=== PATIENT | female | born 1940 | race Caucasian/White ===

== ENCOUNTER 2016-09-19 14:42 | Inpatient (IN) ==
[2016-09-19 15:23] LABS: MANUAL DIFF NEEDED? NO
[2016-09-19 15:30] LABS: BASO% 0.1 % (0.0-0.8); EOS# 0.07 X1000 (0.0-0.7); EOS% 0.5 % (0.0-10.0); HEMATOCRIT 34.3 % (37.0-47.0); HEMOGLOBIN 11.6 g/dL (12.0-16.0); IMM GRAN# 0.04 X1000 (0.0-0.04); IMM GRAN% 0.3 % (0.0-0.5); LYMPH# 1.86 X1000 (1.2-3.4); LYMPH% 13.4 % (20.5-51.1); MCHC 33.8 g/dL (33-37); MCV 85.8 FL (81-99); MONO# 1.08 X1000 (0.11-0.59); MONO% 7.8 % (1.7-9.3); MPV 10.3 FL (7.4-10.4); NEUT% 77.9 % (42.2-75.2); PLT 341 X1000 (130-400)
[2016-09-19 15:39] LABS: ACETAMINOPHEN < 1.2 ug/mL (10-30); AGAP 14; ALBUMIN 4.1 g/dL (3.5-5.0); ALKALINE PHOSPHATASE 89 U/L (32-104); BUN 33 mg/dL (8-22); CALCIUM 9.7 mg/dL (8.8-10.2); CHLORIDE 94 mmol/L (98-107); COSMO 276; GOT 17 U/L (10-30); GPT 12 U/L (10-36); POTASSIUM 3.9 mmol/L (3.5-5.1); SODIUM 133 mmol/L (136-145); TCO2 25 mmol/L (25-35); TOTAL BILIRUBIN 0.36 mg/dL (0.20-1.00)
[2016-09-19 15:48] LABS: URINE CULTURE NEEDED? NO; URINE MICRO REVIEW NEEDED? NO; URINE SOURCE CLEAN CATCH
[2016-09-19 15:54] LABS: BILIRUBIN URINE NEGATIVE (NEGATIVE); BLOOD URINE NEGATIVE (NEGATIVE); COLOR YELLOW; GLUCOSE URINE NEGATIVE (NEGATIVE); LEUKOCYTES URINE NEGATIVE (NEGATIVE); NITRITE URINE NEGATIVE (NEGATIVE); PH URINE 5.5; PROTEIN URINE TRACE mg/dL (NEGATIVE); SP GRAVITY URINE 1.019; TURBIDITY URINE CLEAR (CLEAR); UROBILINOGEN URINE NORMAL (NORMAL)
[2016-09-19 15:55] LABS: UR EPITHELIAL CELLS <10 /HPF (<10); URINE BACTERIA NEGATIVE /HPF; URINE RBC <10 /HPF (<10); URINE WBC <10 /HPF (<10)
--- NOTE | 2016-09-19 15:58 | PROVIDER DOCUMENTATION ---
This chart was entered by Donna Arce Scribe, acting as scribe for Yaya Kohli MD. HPI-General Adult - General Chief Complaint: Altered Mental Status Stated Complaint: AMS Time Seen by Provider: 09/19/16 15:08 Source: patient Allergies/Adverse Reactions: Patient Allergies Allergy/AdvReac Type Severity Reaction Status Date / Time amoxicillin [Amoxicillin] AdvReac Severe DIARRHEA Verified 01/19/16 12:22 Home Medications: Home Medication List Medication Instructions Recorded Confirmed Last Taken Type Dipyridamole 50 mg PO TID 01/05/15 09/19/16 01/18/16 19:00 History Ropinirole [Requip] 1 mg PO BID 01/05/15 09/19/16 05/30/16 06:30 History Dicyclomine [Bentyl] 10 mg PO TID AC 07/05/15 09/19/16 01/18/16 19:00 History Pantoprazole Sodium [Protonix] 40 mg PO DAILY 07/05/15 09/19/16 05/30/16 06:00 History Azithromycin [Azithromycin] 500 mg PO DAILY 09/19/16 09/19/16 Unknown History Baclofen [Baclofen] 10 mg PO BID 09/19/16 09/19/16 Unknown History Lorazepam [Lorazepam] 0.5 mg PO TID 09/19/16 09/19/16 Unknown History Methylprednisolone [Medrol Dosepak] 1 each PO DIRECTED 09/19/16 09/19/16 Unknown History Omeprazole [Omeprazole] 20 mg PO DAILY 09/19/16 09/19/16 Unknown History Pravastatin Sodium [Pravastatin 40 mg PO DAILY 09/19/16 09/19/16 Unknown History Sodium] Triamterene/Hydrochlorothiazid 1 each PO DAILY 09/19/16 09/19/16 Unknown History [Triamterene-Hctz 75-50 mg Tab] - History of Present Illness -Gen Adult Nature of Presenting Problems: pt is a 75 yof that presents to er with cc of falling. Pt reports that she called EMS bc she has fallen several times today. Reports hx of vertigo for years. Denies any drug,alcohol dependance, n,v,extremity injuries. EMS reports pt has AMS secondary to dementia. pt reports that she has hit her head multiple times today and now having a headache globally. Pt has an implanted morphine pump and [facility] to [facility]. Review of Systems - Adult - REVIEW OF SYSTEMS - ADULT Constitutional: denies: chills, fever, fatique Eyes: reports: no symptoms reported Ears, Nose, Mouth & Throat: reports: no symptoms reported Cardiovascular: reports: no symptoms reported Respiratory: reports: no symptoms reported Gastrointestinal: denies: abdominal pain, diarrhea, nausea, vomiting Genitourinary: reports: no symptoms reported Musculoskeletal: reports: see HPI. denies: joint pain, joint swelling, neck pain Integumentary: denies: hives, mole changes, skin sores/ulcer, skin thickening Neurological: reports: headache/migraines. denies: dizziness/vertigo, loss of balance, numbness, paresthesia, seizure, slurred speech Psychiatric: reports: no symptoms reported Endocrine: reports: no symptoms reported Hematologic/Lymphatic: reports: no symptoms reported Allergic/Immunologic: reports: no symptoms reported All Other Systems: Reviewed and Negative Past History - Adult - PAST MEDICAL HISTORY-ADULT Review of Records: reports: Nursing Assessment Review, Medications Reviewed Major Childhood Illnesses: reports: denies history Cardiovascular: reports: CAD, CHF, HTN, hyperlipidemia Respiratory: reports: asthma, COPD Gastrointestinal: reports: GERD Obstetrical/Gynecological: reports: denies history Genitourinary: reports: denies history Musculoskeletal: reports: chronic pain (chronic back pain with a pain pump) Neurological: reports: denies history Psychiatric: reports: depression, suicide attempt Endocrine/Immune: reports: cancer (skin) Other Conditions: reports: denies history - PRIOR SURGERIES/PROCEDURES Surgical/Procedure History: reports: appendectomy, CABG, cholecystectomy, hysterectomy, back/neck - PRIOR HOSPITALIZATIONS Prior Hospitalizations: reports: none - IMMUNIZATION STATUS Childhood Immunizations: See Nurse Assessment Flu Vaccine: See Nurse Assessment - FAMILY HISTORY Family History: reviewed, not pertinent - SOCIAL HISTORY Smoking: cigarettes, less than 1 pack/day Provider spent 3-5 mins advising pt. on dangers of tobacco.: Discussed manners to quit use, and f/u contacts for add'l counseling. Substance Use: none/never Physical Exam-General - PHYSICAL EXAM-ADULT Initial Vital Signs Reviewed: Yes - CONSTITUTIONAL General Appearance: appears well, alert, no apparent distress - EYES Eyes: PERRL/EOMI, pink conjunctivae - NECK Neck: non-tender, full range of motion, supple, normal inspection - RESPIRATORY Respiratory: chest non-tender, lungs clear, normal breath sounds, no pleuratic chest pain, no respiratory distress, no accessory muscle use - CARDIOVASCULAR Cardiovascular: regular rate, rhythm - GASTROINTESTINAL (ABDOMEN) Abdominal Exam: normal bowel sounds, non tender, soft, no organomegaly, no pulsatile mass - MUSCULOSKELETAL Extremity: normal range of motion, non-tender - SKIN Integumentary: normal color, normal turgor, warm/dry - NEUROLOGIC Neurologic: grossly normal - PSYCHIATRIC Psych/Mental Status: normal mood/affect, normal thought content, normal thought process, other (oriented x 2) Progress - PLAN OF CARE/RESULTS Progress/Plan/Lab Results: Vital Signs - 8 hr 09/19/16 14:45 Temperature 98.5 F Pulse Rate 103 H Respiratory Rate 20 Blood Pressure 132/79 O2 Sat by Pulse Oximetry 99 Orders Category Date Time Status CBC WITH ELECTRONIC DIFF [HEME] Stat Lab 09/19/16 15:08 Uncollected CMP [COMPREHENSIVE METABOLIC PANEL] [CHEM] Stat Lab 09/19/16 15:08 Uncollected UA NIMS W/REFLEX CULT [URINALYSIS] Stat Lab 09/19/16 15:09 Uncollected UDS [URINE DRUG SCREEN] Stat Lab 09/19/16 15:13 Uncollected Result Diagrams: 09/19/16 14:53 09/19/16 14:53 - EKG 1 Time of EKG reading by physician:: 15:05 EKG Read and Signed by:: Yaya Kohli EKG Interpretation (*Must complete 3 of following elements*): Abnormal (poss lae ) Rate: 101 Rhythm: sinus tachy ST Wave: non-specific ST changes (nonspecific ST and T wave abnormality) - CT/MRI 1 CT Study: Head Impression: Normal CT Results: nad - CONSULTS/PCP/HOSPITALIST Notification #1 *Consult/PCP/Hospitalist*: [facility] Time Discussed: 16:44 Consult Disposition: other (they do not want her on baclofen or lorazepam while on the morphine pump. Her dose is so low on the pump, that the urine being negative is expected.) Departure - Departure Date of Disposition Decision: 09/19/16 Time of Disposition Decision: 16:45 DIAGNOSIS: Polypharmacy, Ataxia, Renal insufficiency Medication adverse effect Qualifiers: Encounter type: initial encounter Qualified Code(s): T88.7XXA - Unspecified adverse effect of drug or medicament, initial encounter Disposition: ADMITTED INPATIENT 09 Certified Medical Emergency: Emergent Condition: Stable Additional Freetext Instructions: do not take any lorazepam or any baclofen since you are on a morphine pain pump. It is making you fall ED Follow Up Instructions: You have been treated by a care provider in the Emergency Department. These instructions are being provided to you so you can have an understanding of how to care for yourself upon discharge. Upon discharge from the Emergency Department, you are responsible for making arrangements for follow-up care by a physician of your choice. Take all prescribed medications as directed. Return to the Emergency Department immediately for any new or worsening symptoms. You may call the Physician Referral phone number at [phone] to obtain a list of Physicians who are taking new patients. Referrals and Follow-Ups: Alejandro Leslie MD [Primary Care Provider] - - Critical Care Note This patient required my direct & personal management of CC.: No Attestation - Physician/ ROMARIO Attestation The physician spent face to face time with patient:: Yes Advanced Practice Provider documentation review:: Supervising physician onsite and consulted in the evaluation and care of this patient. The physician did have a face to face encounter with the patient. This chart was documented by the indicated scribe, (Donna Arce Scribe) and accurately reflects the services I performed and decisions made by me, Yaya Kohli MD, as attested by the provider's signature.
[2016-09-19 16:02] LABS: UR AMPHETAMINES QUAL NONE DETECTED (NONE DETECT); UR BARBITUATES QUAL NONE DETECTED (NONE DETECT); UR BENZODIAZEPIN QUAL NONE DETECTED (NONE DETECT); UR CANNABINOIDS QUAL NONE DETECTED (NONE DETECT); UR COCAINE QUAL NONE DETECTED (NONE DETECT); UR METHADONE QUAL NONE DETECTED (NONE DETECT); UR OPIATES QUAL NONE DETECTED (NONE DETECT); UR OXYCODONE QUAL NONE DETECTED (NONE DETECT); UR PCP QUAL NONE DETECTED (NONE DETECT)
--- NOTE | 2016-09-19 16:04 | Diag Imaging Result Doc PS360 ---
EXAM: HEAD W/O CONTRAST TECHNIQUE: INDICATION: fall COMPARISON: 07/09/2015 FINDINGS: There is no definite acute infarct given the limited sensitivity of CT versus MRI. There is no discrete intracranial mass, mass effect, or intracranial hemorrhage. The surrounding soft tissues and bony structures are essentially unremarkable. IMPRESSION: No evidence of acute intracranial pathology. Electronically signed by Chris Reardon 09/19/2016 4:01 PM
[2016-09-19] MEDS ORDERED: ZOFRAN IV PRN (19:13)
--- NOTE | 2016-09-19 19:47 | HISTORY AND PHYSICAL ---
PRIMARY CARE PHYSICIAN: Alejandro Leslie MD CHIEF COMPLAINT: Fall and amnesia. HISTORY OF PRESENT ILLNESS: Ms. Jaramillo is a 75-year-old female with a history of chronic pain with pain pump, hypertension, Meniere's disease, coronary disease, nicotine dependence, and questionable dementia who comes to the ER today after she reports that she has amnesia and is unable to recall who she is, however, at the time of interview, the patient is able to tell us her name, but reports that she has fallen a few times and has had difficulty with her memory. She lives alone and is on multiple medications. Otherwise, history is very difficult to obtain as the patient is a poor historian, and there is no family at the bedside. When she got to the ER today, she had a head CT done which showed chronic changes, but nothing acute. Her labs showed a mildly elevated white count, anemia, hyponatremia, mild renal insufficiency, but nothing overly acute. Her vitals are stable and her physical exam is benign. She is slightly confused, but is essentially able to answer orientation questions, and her neurologic exam is nonfocal. As such, she is going to be admitted for encephalopathy, hyponatremia and renal insufficiency. PAST MEDICAL HISTORY: 1. Coronary artery disease. 2. Chronic pain with a pain pump in the right lower quadrant. 3. Nicotine dependence. 4. Questionable dementia. 5. Hypertension. 6. GERD. 7. Meniere's disease. SURGICAL HISTORY: Appendectomy, CABG, cholecystectomy, hysterectomy, pain pump insertion. SOCIAL HISTORY: Patient smokes about a half a pack a day. She lives alone. She denies alcohol or drug use. ALLERGIES: Amoxicillin. FAMILY HISTORY: Noncontributory. HOME MEDICATIONS: Azithromycin 500 mg daily. Baclofen 10 mg b.i.d. Bentyl 10 mg p.o. t.i.d. Dipyridamole 50 mg p.o. t.i.d. Lorazepam 0.5 mg p.o. t.i.d. Medrol Dosepak as directed. Omeprazole 20 mg daily. Protonix 40 mg daily. Pravastatin 40 mg daily. Requip 1 mg b.i.d. Triamterene/hydrochlorothiazide 1 daily. REVIEW OF SYSTEMS: Difficult to obtain, but a 14 point review of system was obtained and found to be negative with the exception of the HPI. PHYSICAL EXAMINATION: VITAL SIGNS: Blood pressure is 123/85, heart rate is 70, respiratory rate 18, O2 saturation 99% on room air. Temperature is 98.9 degrees. GENERAL: This is an elderly and frail-appearing 75-year-old, female, lying in hospital bed. No acute distress. NEUROLOGIC: Overall the patient is on oriented to her name, place and date. She follows commands without focal deficits, during the course of the interview she is quite forgetful at times. HEENT: Head atraumatic and normocephalic. Her pupils are equal, round, and reactive to light. Oral mucosa is a bit dry. Trachea is midline. There is no JVD. CHEST: Clear to auscultation bilaterally. CARDIOVASCULAR: Regular rate and rhythm. S1-S2 is noted. No murmurs. GI: Soft and nondistended. There is an artificial device surgically implanted in the right lower quadrant. EXTREMITIES: Without edema, clubbing or cyanosis. Pulses palpable bilaterally. DIAGNOSTIC DATA: WBC 13.9, hemoglobin 11.6, hematocrit 34.3, platelet count 341 ,000. Sodium 133, potassium 3.9, chloride 94, CO2 25, anion gap 14, BUN 33, creatinine 1.4, glucose is 147, calcium 9.7. LFTs within normal limits. Albumin 4.1. UA does not show anything acute. Toxicology is completely negative. ASSESSMENT AND PLAN: 1. Generalized encephalopathy: Likely medication induced on top of chronic dementia. The patient will be admitted to the floor. We will stop all of her mind- altering medications and track her neurologic status, head CT does not show anything acute at this time. There does not appear to be any acute metabolic issues causing her confusion. We may need to get either Psychiatric or Neurology, possibly both on board. 2. Leukocytosis: At this time, there does not appear to be any nidus of infection. She is not febrile or tachycardic. Urinalysis is negative. We are checking a chest x- ray. 3. Hyponatremia: Likely hypovolemic, with use of diuretic. We will stop the diuretic and give her some fluids. 4. Renal insufficiency: Likely volume related and with concomitant use of a diuretic. We will stop the diuretic and give her fluids and avoid any nephrotoxic medications. 5. Anemia: We will check thyroid function and anemia studies in the morning. 6. Query safe home environment: Patient lives alone and reports frequent falls and with her level of encephalopathy, she is unlikely to have a safe home environment. We are going to try and call her family in the morning and will consult Physical Therapy and Social Work. 7. Deep vein thrombosis prophylaxis with Lovenox, renally dosed. Further recommendations to follow. Dictated by CHRISTA Salazar for Kiana Andrade MD cc: CHRISTA Salazar MD [facility]ENT[facility]rystal
[2016-09-19] MEDS: NICODERM PATCH TD SCH (22:25)
[2016-09-19] MEDS: REQUIP PO SCH (22:26)
[2016-09-19] MEDS: NS 1,000 ML IV SCH (22:28)
--- NOTE | 2016-09-20 05:37 | EKG Report ---
Test Performed on : 09/19/2016 3:05:02 PM Test Reason : AMS Blood Pressure : / mmHG Vent. Rate : 101 BPM Atrial Rate : 101 BPM P-R Int : 172 ms QRS Dur : 066 ms QT Int : 352 ms P-R-T Axes : 071 038 086 degrees QTc Int : 456 ms Sinus tachycardia. Possible Left atrial enlargement Nonspecific ST and T wave abnormality Abnormal ECG When compared with ECG of 15-SEP-2016 19:08, No significant change was found Unconfirmed Result
[2016-09-20] MEDS: PROTONIX PO SCH ×2 (05:56→06:57)
[2016-09-20] MEDS: BENTYL PO SCH ×4 (05:56→17:30)
[2016-09-20 06:14] LABS: HEMATOCRIT 32.5 % (37.0-47.0); HEMOGLOBIN 10.7 g/dL (12.0-16.0); MCH 29.5 PG (27-31); MCHC 32.9 g/dL (33-37); MCV 89.5 FL (81-99); MPV 9.3 FL (7.4-10.4); RBC 3.63 XMIL (4.2-5.4)
[2016-09-20 06:40] LABS: CALCIUM 9.2 mg/dL (8.8-10.2); POTASSIUM 3.2 mmol/L (3.5-5.1)
--- NOTE | 2016-09-20 07:20 | Diag Imaging Result Doc PS360 ---
CHEST-2 VIEWS - 09/20/2016 INDICATION: leukocytosis TECHNIQUE: COMPARISON: 09/15/2016 FINDINGS: Stable mildly hyperexpanded lungs compatible with COPD. Stable calcified granulomas in the left lower lobe. No focal infiltrates, pneumothorax, or pleural effusion. Heart size and pulmonary vascularity is normal. IMPRESSION: COPD. No change from prior. Electronically signed by Chacorta Fu 09/20/2016 7:18 AM
[2016-09-20] MEDS: PRAVACHOL PO SCH (09:31)
[2016-09-20] MEDS: REQUIP PO SCH ×2 (09:31→22:00)
[2016-09-20] MEDS: LOVENOX SUBQ SCH (09:31)
[2016-09-20] MEDS: NICODERM PATCH TD SCH (09:31)
[2016-09-20] MEDS ORDERED: KLOR-CON PO ONE (09:51)
[2016-09-20] MEDS: VITAMIN B-12 SL SCH (11:54)
[2016-09-20] MEDS: FOLIC ACID PO SCH (11:54)
[2016-09-20] MEDS: NS 1,000 ML IV SCH ×2 (11:56→17:55)
--- NOTE | 2016-09-20 17:06 | CONSULTATION ---
DATE OF CONSULTATION: 09/20/2016 REASON FOR CONSULTATION: The patient is seen in consultation at the request of Dr. Andrade for evaluation of altered mental status. HISTORY OF PRESENT ILLNESS: A 75-year-old, right-handed, female with chronic pain with pain pump, Meniere disease, nicotine dependence, hypertension, and coronary artery disease, possible dementia or mild cognitive impairment, who was admitted yesterday with altered mental status. Per records, she reported she had a period of amnesia but that had improved in the emergency room. She tells me today that she took some new medications that were given to her including a Z-Ranjith and 2 others that she cannot recall. She took her other medications and went to sleep on the couch for quite some time. She woke up and felt dizzy. When she was trying to get up her dizziness got worse. She was unable to get to a standing position. She tried to push off on the table with her arm but kept slipping. Therefore, she tried the other arm and the same thing happened. She did not have any major fall, however. She does not believe she had loss of consciousness. She is a very poor historian for the most part. A head CT showed no acute findings. She had a mildly elevated white count, anemia, hyponatremia, some mild renal insufficiency. There is concern about over medication. She denied headache, visual changes, focal numbness or weakness. No history of seizures. Since admission her medications have been reduced and she states that she is feeling much better. PAST MEDICAL HISTORY: Coronary artery disease, chronic pain with pain pump in the right lower quadrant, nicotine dependence, possible dementia versus mild cognitive impairment versus medication effect, hypertension, GERD, Meniere disease, appendectomy, CABG, cholecystectomy, hysterectomy, pain pump insertion. SOCIAL HISTORY: She lives alone. Her daughter recently moved to [place]. She is a current smoker. No alcohol or drug use. ALLERGIES: Amoxicillin. MEDICATIONS: At home include azithromycin, I believe that was just started today the day her symptoms started, baclofen, Bentyl, dipyridamole, lorazepam, Medrol Dosepak, omeprazole, Protonix, pravastatin, Requip, triamterene/hydrochlorothiazide. I am not sure which other 2 medications were given to her newly with the azithromycin. FAMILY HISTORY: Noncontributory. REVIEW OF SYSTEMS: The balance of 12 was conducted and was somewhat limited but appeared to be negative except that mentioned in the HPI. PHYSICAL EXAMINATION: Vital signs: Afebrile, blood pressure 149/42, pulse 101 , respirations 19, 100% on room air. General: This is an elderly female, asleep in bed, no acute distress. HEENT: All normal. Neck: Supple. No meningismus. Trachea midline. Cardiovascular: Intact pulses. No edema. Pulmonary: No increased work of breathing. Normal chest rise and expansion. No audible rales or wheezes. Abdomen: Soft, nontender. She does have a pain pump in the right side of her abdomen. Extremities: Warm and well perfused. No edema. No clubbing or cyanosis. Skin: Warm, dry, and intact. She has some bruising scattered. Neurologic: Mental status: She is asleep initially. Arouses to voice plus light tactile stimulation on the knee. Regards. Spontaneously conversational. She is oriented. Speech is fluent. She does seem to be somewhat confused and is a poor historian overall, though she is able to discuss some recent events and remote events. Cranial nerves: KEERTHI. Conjugate gaze. Ocular movements are full. Visual hurley full to direct confrontational testing. Face symmetric with equal activation. Facial sensation is intact. Tongue protrudes midline. Palate elevates symmetrically. Shoulder shrug is full. Motor exam: No drift. Strength is symmetric in the upper and lower extremities. No overt weakness. Reflexes are reduced throughout, symmetric. Toes are mute. No clonus. No evidence of incoordination on testing. Sensory exam: No gross abnormalities on testing. DIAGNOSTICS DATA: Head CT was personally reviewed. There are no acute findings. There may be some mild diffuse atrophy, though this may not be out of proportion to her age. Lab work was reviewed in the chart. White count 13.9 on admission. BUN 33 and creatinine 1.4 on admission, now 29 and 1.2 respectively. Iron level is low. LFTs were not elevated. Ammonia not elevated. Vitamin B12 174. Vitamin D 8. Folic acid 7.5. TSH and free T4 normal. Urinalysis trace protein, otherwise negative. Her toxicology screen was negative. ASSESSMENT AND PLAN: This is a 75-year-old, right-handed, female with history of chronic pain with pain pump and multiple other medications on board, with the addition of 3 new medications just prior to onset of symptoms, presenting with altered mental status and feelings of dizziness with no definite loss of consciousness. Now improved since admission. Encephalopathy, most likely toxic and metabolic drug related. Her exam is nonfocal which is reassuring. Head CT also did not show any acute findings, also reassuring. Again, she is improving. Agree with reduction of her medications, treating any underlying metabolic derangements and supplementing with vitamins and minerals which were low. Will order a routine EEG. Thank you for this consultation. cc: Ariane Lucio MD MTD
--- NOTE | 2016-09-20 19:03 | PROGRESS NOTE ---
DATE: 09/20/2016 SUBJECTIVE: The patient states that she feels a little bit better today. No acute events noted overnight. OBJECTIVE: Vital Signs: Temperature 97.6 degrees, blood pressure 149/42, heart rate 101, respirations 19, O2 saturations 100% on room air. General: This is an elderly female, lying in bed, in no acute distress. Head: Normocephalic atraumatic. Heart: S1, S2. Normal. Tachycardic. Lungs: Equal air entry bilaterally. No crackles. No rales. Abdomen: Positive bowel sounds. Soft, nontender, nondistended. Extremities: No edema. No cyanosis. No calf tenderness. Neurologic: The patient is awake and alert. She is able to move all 4 extremities and stand. LABS: Sodium 138, potassium 3.2, white blood cell count 7.9. Chloride 99, CO2 27, BUN 29, creatinine 1.2, glucose 117. Vitamin B 12 174. Folate 7.5, vitamin D 8. ASSESSMENT AND PLAN: 1. Encephalopathy. This may be secondary to medications since the patient was recently started on a new antibiotic she reports that her difficulty with her balance and ambulation started. Will hold the offending medication and monitor the patient. Physical therapy will also be working with the patient. The patient has been seen by the neurologist. 2. Vitamin B12 deficiency. Will start the patient on vitamin B12 replacement. 3. Vitamin D deficiency. Will start the patient on vitamin D2. 4. Folate deficiency. We will start the patient on folic acid. 5. Acute kidney injury. Improved. Continue with IV fluid hydration. 6. Leukocytosis. Resolved. There is no obvious source of infection. 7. Hypokalemia. Will replace the patient's potassium. 8. Chronic pain syndrome. The patient has a pain pump in place. 9. Hypertension. Controlled. 10. Deep vein thrombosis prophylaxis. Continue on Lovenox. 11. Continue with physical therapy. 12. Disposition. The patient will likely require rehab placement. guest services officer is assisting with this. cc: Kiana Andrade MD MTDD
[2016-09-20] MEDS ORDERED: VITAMIN D PO SCH (21:00)
[2016-09-21 05:18] VITALS: BP 116/62
[2016-09-21] MEDS: PROTONIX PO SCH ×2 (05:34→06:03)
[2016-09-21] MEDS: BENTYL PO SCH ×3 (05:34→10:36)
[2016-09-21] MEDS: NS 1,000 ML IV SCH (05:34)
[2016-09-21 06:21] LABS: HEMATOCRIT 32.7 % (37.0-47.0); HEMOGLOBIN 10.8 g/dL (12.0-16.0); MCH 29.8 PG (27-31); MCV 90.1 FL (81-99); MPV 9.8 FL (7.4-10.4); RBC 3.63 XMIL (4.2-5.4)
[2016-09-21 06:47] LABS: CALCIUM 8.5 mg/dL (8.8-10.2); POTASSIUM 4.2 mmol/L (3.5-5.1)
[2016-09-21] MEDS: NICODERM PATCH TD SCH (08:00)
[2016-09-21] MEDS: VITAMIN B-12 SL SCH (08:00)
[2016-09-21] MEDS: FOLIC ACID PO SCH (08:01)
[2016-09-21] MEDS: PRAVACHOL PO SCH (08:01)
[2016-09-21] MEDS: LOVENOX SUBQ SCH (08:01)
[2016-09-21] MEDS ORDERED: MAGNESIUM SULFATE 2 GM/S.W.I. 2 GM/50 ML IVPB IV ONE (08:30)
[2016-09-21] MEDS: REQUIP PO SCH (08:49)
--- NOTE | 2016-09-21 12:08 | PROGRESS NOTE ---
DATE: 09/21/2016 Ms. Jaramillo is awake and alert this am. Review of the hospital records shows she has improved since admission. Dr. Lucio saw her for initial neurology consultation yesterday and ordered EEG. Ms. Jaramillo reports no episodes of unconsciousness or altered awareness here. No new suggestions today from neurologic standpoint. As an aside, I saw Ms. Jaramillo a few years ago, and she had complaint of unsteady gait then. There were no definite clinical findings. There were some uncertainties regarding her medications then. Thanks for asking us to see her again. cc: MD DORIE Lin III
--- NOTE | 2016-09-21 16:09 | DISCHARGE SUMMARY ---
ADMISSION DATE: 09/19/2016 DISCHARGE DATE: 09/21/2016 CONSULTATIONS: Dr. Ariane Lucio with Neurology. PERTINENT PROCEDURES: 1. Head CT showed no evidence of acute intracranial pathology. 2. Chest x-ray showed COPD. No change from prior. DISCHARGE DIAGNOSES: 1. Encephalopathy secondary to medication. 2. Vitamin B12 deficiency 3. Vitamin D deficiency 4. Folate deficiency 5. Acute kidney injury 6. Leukocytosis 7. Hypokalemia 8. Chronic pain syndrome. 9. Hypertension DISPOSITION: Home with home health and physical therapy. HOSPITAL COURSE: Ms. Jaramillo is a 75-year-old female with a history of chronic pain, with a pain pump, hypertension, Meniere's disease, coronary artery disease, nicotine dependence, questionable dementia. Came to the ED with reports that she has amnesia and is unable to recall who she is; however, at the time of her interview, the patient was able to tell us her name but reports that she has fallen a few times and had difficulty with her memory. She lives alone, is on multiple medications. Otherwise, her history is very difficult to obtain. A head CT that was done in the ED showed chronic changes, but nothing acute. Her labs showed mildly elevated white count, anemia, hyponatremia and mild renal insufficiency, but nothing overly acute. Vital signs were stable. Physical exam was benign. Neurological exam was nonfocal. She was initially admitted for encephalopathy, hyponatremia and renal insufficiency. Her mind- altering medications were held. Neurology was consulted. Again, her urinalysis was negative. Chest x-ray was benign. Her diuretic was held. She was gently hydrated. Neurology felt that her encephalopathy was most likely toxic- and metabolic-drug related. Her exam was nonfocal. Head CT showed no acute findings, which was reassuring to them. She was improving. They agreed with reduction of her medications, treating any underlying metabolic derangements, and supplementing with vitamins and minerals. The patient feels that she has had difficulty with her balance with ambulation. Physical therapy was ordered. Asian Studies Professor was consulted for possible rehab placement. They have opted for home health with physical therapy. She is appropriate for discharge home today. VITAL SIGNS: Temperature is 98.5 degrees, heart rate 95, respirations 20, blood pressure 116/62, O2 is 100% on room air. DISCHARGE DIET: Regular. DISCHARGE MEDICATIONS: 1. Baclofen 10 mg p.o. b.i.d. 2. Vitamin B12 of 2500 mcg sublingual daily. 3. Bentyl 10 mg p.o. t.i.d. before meals. 4. Dipyridamole 50 mg p.o. t.i.d. 5[place] [address] units p.o. q.7 days, take every Sunday. 6. Folic acid 1 mg p.o. daily. 7. Lorazepam 0.5 mg p.o. t.i.d. 8. Protonix 40 mg p.o. daily. 9. Pravastatin 40 mg p.o. daily. 10. Requip 1 mg p.o. b.i.d. FOLLOWUP: Ms. Jaramillo is being discharged home with home health and physical therapy. She will need to follow up with her primary care physician, Dr. Alejandro Leslie, in 1 week. She can return to the ED for any worsening of symptoms. DISCHARGE TIME: 30 minutes. Dictated by CHRISTA Flores for Kiana Andrade MD cc: MD Alejandro Jones MD [facility]
--- NOTE | 2016-09-25 17:36 | EEG REPORT ---
DATE: 09/20/2016 REFERRING PHYSICIAN: Ariane Lucio MD EEG NUMBER: [id number] PRIMARY HEALTH ORGANISATION MANAGER: Merrick Medina. BACKGROUND INFORMATION/TECHNIQUE: A digitally recorded EEG is obtained with 1 additional channel for EKG. HISTORY OF PRESENT ILLNESS: A 75-year-old female, on multiple medications, presented with altered mental status. An EEG is ordered to detect evidence of possible seizures pr increased propensity for seizures. EEG FINDINGS: Occasionally an 8.5 hertz posterior dominant alpha rhythm is noted symmetrically in the occipital regions. It is poorly sustained. The background consists of mixed alpha beta and theta range frequencies. No focal slowing is identified. No epileptiform discharges and no seizure seen. Hyperventilation was not performed. Photic stimulation did not induce a photic driving response. No definite drowsiness patterns are noted. Stage 2 sleep is not seen. The EKG lead does show artifact at times, though the sections without artifact show regular RR intervals. IMPRESSION AND CLINICAL CORRELATION: Abnormal routine EEG due to: 1. Mild diffuse slowing, suggestive of a mild nonspecific encephalopathy. Generalized slowing is a nonspecific finding that can be seen in processes that diffusely affect the cerebrum, including toxic, metabolic, pharmacologic, infectious, and post hypoxic etiologies. 2. No epileptiform discharges and no seizures are noted on the current study. This does not rule out an underlying seizure disorder. 3. Clinical correlation is advised. cc: Ariane Lucio MD
== END 2016-09-21 14:45 | disposition home health service (06) ==
LOC: ED 14:42 → 4N 17:29
PROVIDERS: ATTEND Internal Medicine

== ENCOUNTER 2019-03-07 11:36 | Inpatient (IN) ==
[2019-03-07] MEDS ORDERED: NS 500 ML IV ONE (12:38)
[2019-03-07 13:08] LABS: BE 0.5 mmoll (-3.0-3.0); BLOOD TYPE ARTERIAL; HCO3-(ACT) 25.2 mmoll (20.0-26.0); METHB 0.1 % (0.0-1.5); O2(CT) 17.5 mL/dL (15.0-23.0); O2HB 91.2 % (95.0-99.0); PCO2(98.6) 41 mmHg (35-45); PO2(98.6) 95 mmHg (60-100); SAMPLE BLOOD; SAO2 95.6 % (95.0-100.0); THB 13.6 g/dL (11.5-17.4)
[2019-03-07 13:12] LABS: ALLEN TEST YES; MODALITY CANNULA
[2019-03-07 13:27] LABS: BASO# 0.04 X1000 (0.0-0.2); BASO% 0.4 % (0.0-0.8); EOS# 0.29 X1000 (0.0-0.7); EOS% 2.8 % (0.0-10.0); HEMOGLOBIN 12.7 g/dL (12.0-16.0); IMM GRAN# 0.04 X1000 (0.0-0.04); IMM GRAN% 0.4 % (0.0-0.5); LYMPH# 2.05 X1000 (1.2-3.4); MCH 29.7 PG (27-31); MCHC 33.4 g/dL (33-37); MCV 88.8 FL (81-99); MONO# 0.93 X1000 (0.11-0.59); MONO% 9.1 % (1.7-9.3); NEUT# 6.92 X1000 (1.4-6.5); NEUT% 67.3 % (42.2-75.2); PLT 323 X1000 (130-400); RBC 4.28 XMIL (4.2-5.4); RDW 12.4 % (11.5-14.5); WBC 10.27 X1000 (4.8-10.8)
--- NOTE | 2019-03-07 13:40 | Diag Imaging Result Doc PS360 ---
EXAM: CHEST-PORTABLE - 03/07/2019 HISTORY: OVERDOSE TECHNIQUE: Portable chest COMPARISON: 12/30/2018 chest two views FINDINGS: Heart size is normal. Inspiration is mildly shallow. There is subsegmental atelectasis at the left base. The remainder of the lungs appear clear. There is no pleural effusion or pneumothorax identified. IMPRESSION: Mildly shallow inspiration, with subsegmental atelectasis at left base. No discrete pneumonia. Electronically signed by Alex Rogers 03/07/2019 1:37 PM
[2019-03-07 13:52] LABS: AGAP 14; ALBUMIN 4.1 g/dL (3.5-5.0); ALKALINE PHOSPHATASE 122 U/L (32-104); BUN 17 mg/dL (8-22); CHLORIDE 92 mmol/L (98-107); COSMO 265; CREATININE 1.4 mg/dL (0.5-0.9); ESTIMATED GFR 37; GLUCOSE 110 mg/dL (70-104); GOT 18 U/L (10-30); GPT 12 U/L (10-36); MAGNESIUM 1.8 mg/dL (1.5-2.7); POTASSIUM 4.3 mmol/L (3.5-5.1); SALICYLATES < 3.00 mg/dL (3-10); SODIUM 131 mmol/L (136-145); TCO2 25 mmol/L (25-35); TOTAL PROTEIN 7.7 g/dL (6.3-8.3)
[2019-03-07 13:53] LABS: INFLUENZA A NEGATIVE (NEGATIVE); INFLUENZA B NEGATIVE (NEGATIVE)
[2019-03-07 14:21] LABS: URINE SOURCE CLEAN CATCH
[2019-03-07 14:27] LABS: BILIRUBIN URINE NEGATIVE (NEGATIVE); BLOOD URINE NEGATIVE (NEGATIVE); COLOR YELLOW; GLUCOSE URINE NEGATIVE (NEGATIVE); KETONE URINE NEGATIVE (NEGATIVE); LEUKOCYTES URINE LARGE (NEGATIVE); NITRITE URINE NEGATIVE (NEGATIVE); PROTEIN URINE TRACE mg/dL (NEGATIVE); SP GRAVITY URINE 1.025; TURBIDITY URINE CLEAR (CLEAR); UROBILINOGEN URINE 2 mg/dL (NORMAL)
[2019-03-07 14:29] LABS: UR EPITHELIAL CELLS <10 /HPF (<10); URINE BACTERIA NEGATIVE /HPF; URINE RBC <10 /HPF (<10); URINE WBC 20-40 /HPF (<10)
[2019-03-07 14:45] LABS: UR AMPHETAMINES QUAL NONE DETECTED (NONE DETECT); UR BARBITUATES QUAL NONE DETECTED (NONE DETECT); UR BENZODIAZEPIN QUAL NONE DETECTED (NONE DETECT); UR CANNABINOIDS QUAL NONE DETECTED (NONE DETECT); UR COCAINE QUAL NONE DETECTED (NONE DETECT); UR METHADONE QUAL NONE DETECTED (NONE DETECT); UR METHAMPHETAMINE QUAL NONE DETECTED (NONE DETECT); UR OPIATES QUAL PRESUMPTIVE POSITIVE (NONE DETECT); UR OXYCODONE QUAL PRESUMPTIVE POSITIVE (NONE DETECT); UR PCP QUAL NONE DETECTED (NONE DETECT); UR PROPOXYPHENE QUAL NONE DETECTED (NONE DETECT); UR TCA QUAL PRESUMPTIVE POSITIVE (NONE DETECT)
[2019-03-07] MEDS ORDERED: TYLENOL PO PRN (14:52)
[2019-03-07] MEDS ORDERED: ZOFRAN IV PRN (14:52)
--- NOTE | 2019-03-07 15:23 | PROVIDER DOCUMENTATION ---
This chart was entered by Nati Phan Scribe, acting as scribe for Prashanth Arce MD. [id number] Abuse/Overdose - General Chief Complaint: Overdose Stated Complaint: Overdose Time Seen by Provider: 03/07/19 12:01 Source: patient, EMS Unable to obtain history due to:: altered Allergies/Adverse Reactions: Allergies Allergy/AdvReac Type Severity Reaction Status Date / Time amoxicillin [Amoxicillin] AdvReac Severe DIARRHEA Verified 03/07/19 11:49 Home Medications: Home Medication List Medication Instructions Recorded Confirmed Last Taken Type Dipyridamole 50 mg PO TID 01/05/15 12/30/18 06/04/18 History Ropinirole [Requip] 1 mg PO BID 01/05/15 12/30/18 12/29/18 18:00 History Pravastatin Sodium 40 mg PO DAILY 09/19/16 12/30/18 12/29/18 07:00 History Fluticasone Propionate [Flonase 1 spray REBA DAILY 06/05/18 12/30/18 12/29/18 07:00 History Allergy Relief] Docusate Sodium [Colace] 100 mg PO DAILY #30 cap 12/29/18 12/30/18 Unknown Rx Budesonide/Formoterol Fumarate 2 spray INTRANASAL BID 12/30/18 12/30/18 12/29/18 18:00 History [Symbicort 160-4.5 Mcg Inhaler] Lansoprazole [Prevacid] 1 cap PO DAILY 12/30/18 12/30/18 12/29/18 07:00 History Cyanocobalamin [Vitamin B-12] 1,000 microgm PO DAILY tab 01/03/19 Unknown Rx Ergocalciferol (Vitamin D2) 50,000 unit PO Q7D #4 cap 01/03/19 Unknown Rx [Vitamin D] Nicotine Patch [Nicoderm Patch] 21 mg TD DAILY #30 patch.[id number] 01/03/19 Unknown Rx Duloxetine [Cymbalta] 30 mg PO DAILY #30 cap 01/06/19 Unknown Rx Hydrochlorothiazide 25 mg PO DAILY tab 01/06/19 Unknown Rx Mirtazapine [Remeron] 15 mg PO QHS #30 tab 01/06/19 Unknown Rx Olanzapine [Zyprexa] 2.5 mg PO QHS #30 tab 01/06/19 Unknown Rx Oxycodone/APAP 5 mg/325 mg 1 ea PO Q6H PRN PRN #7 tab 01/06/19 Unknown Rx [Percocet-5] - History of Present Illness-Drug/Alcohol Nature of Presenting Problem: per ems pt had a disagreement with [facility] (where she was staying) mgt, so to prove a point pt took 6-8 oxycodone and has a morphine pain pump. pt is slow to answer and anxious on exam and has confusion and unable to answer questions by dr This episode of drinking or use began:: just prior to arrival Situational problems related to:: reports: other (hotel mgt) Psychiatric Complaints: reports: agitated, altered mental status, anxiety, suicidal ideation Associated Symptoms: reports: other (ams). denies: headaches, nausea, vomiting Any injuries associated with this episode of intoxication?: No Similar Symptoms Previously?: Yes (hx of SI) Recently seen or treated by another doctor?: No - Substance Abuse Substance Use: reports: other (has morphine pump and took 6-8 oxycodone) Review of Systems - Adult - REVIEW OF SYSTEMS - ADULT Constitutional: reports: no symptoms reported Eyes: reports: no symptoms reported Ears, Nose, Mouth & Throat: reports: no symptoms reported Cardiovascular: denies: chest pain, palpitations Respiratory: denies: cough, shortness of breath, wheezing Gastrointestinal: denies: abdominal pain, diarrhea, nausea, vomiting Genitourinary: reports: no symptoms reported Musculoskeletal: reports: no symptoms reported Integumentary: reports: no symptoms reported Neurological: reports: no symptoms reported Psychiatric: reports: see HPI, alcohol/drug dependence, suicidal thoughts Endocrine: reports: no symptoms reported Hematologic/Lymphatic: reports: no symptoms reported Allergic/Immunologic: reports: no symptoms reported All Other Systems: Reviewed and Negative Past History - Adult - PAST MEDICAL HISTORY-ADULT Review of Records: reports: Nursing Assessment Review, Medications Reviewed, Social history reviewed & non-contributory. Major Childhood Illnesses: reports: denies history Cardiovascular: reports: CAD, CHF, HTN, hyperlipidemia Respiratory: reports: asthma, COPD Gastrointestinal: reports: GERD Obstetrical/Gynecological: reports: denies history Genitourinary: reports: denies history Musculoskeletal: reports: chronic pain (chronic back pain with a pain pump) Neurological: reports: denies history Psychiatric: reports: depression, suicide attempt Endocrine/Immune: reports: cancer (skin) Other Conditions: reports: denies history - PRIOR SURGERIES/PROCEDURES Surgical/Procedure History: reports: appendectomy, CABG, cholecystectomy, hysterectomy, indwelling device (pain pump), back/neck - PRIOR HOSPITALIZATIONS Prior Hospitalizations: reports: none - IMMUNIZATION STATUS Childhood Immunizations: See Nurse Assessment Flu Vaccine: See Nurse Assessment - FAMILY HISTORY Family History: reviewed, not pertinent - SOCIAL HISTORY Smoking: cigarettes, less than 1 pack/day Provider spent 3-5 mins advising pt. on dangers of tobacco.: Discussed manners to quit use, and f/u contacts for add'l counseling. Substance Use: denies Living Situation: other ([facility]) Physical Exam-General - PHYSICAL EXAM-ADULT Exam Limited by: ams Initial Vital Signs Reviewed: Yes - CONSTITUTIONAL General Appearance: anxious, slow to respond (with confusion when asked questions) - EYES Eyes: PERRL/EOMI, pink conjunctivae - HEAD, EARS, NOSE, MOUTH & THROAT HENMT: moist mucous membranes - NECK Neck: non-tender, full range of motion, supple, normal inspection - RESPIRATORY Respiratory: lungs clear, normal breath sounds - CARDIOVASCULAR Cardiovascular: normal peripheral pulses, regular rate, rhythm - CHEST (BREASTS) Chest/Breast: deferred - GASTROINTESTINAL (ABDOMEN) Abdominal Exam: normal bowel sounds, non tender, soft - GENITOURINARY Female Genitalia/Pelvic Exam: deferred Rectal Exam: deferred Hemoccult Exam: deferred - LYMPHATIC Lymphatic: no adenopathy - MUSCULOSKELETAL Back Exam: no CVA tenderness, no vertebral tenderness Extremity: normal inspection - SKIN Integumentary: normal color, normal turgor, warm/dry - PSYCHIATRIC Psych/Mental Status: disoriented x 3, anxious Progress - PLAN OF CARE/RESULTS Progress/Plan/Lab Results: Vital Signs - 8 hr 03/07/19 11:44 03/07/19 13:39 03/07/19 14:39 Temperature 98.6 F Pulse Rate 99 H 97 H 96 H Respiratory Rate 18 20 10 L Blood Pressure 155/72 139/74 115/64 O2 Sat by Pulse Oximetry 96 96 98 Laboratory Results - last 24 hr 03/07/19 03/07/19 03/07/19 12:55 13:10 13:10 WBC RBC Hgb Hct MCV MCH MCHC RDW Std Deviation Plt Count MPV Immature Gran % (Auto) Neut % (Auto) Lymph % (Auto) [place] % (Auto) Eos % (Auto) Baso % (Auto) Immature Gran # (Auto) Neut # (Auto) Lymph # (Auto) [place] # (Auto) Eos # (Auto) Baso # (Auto) Specimen Type ARTERIAL Sample Site L RADIAL pH 7.40 pCO2 41 pO2 95 HCO3 25.2 Base Excess 0.5 Oxyhemoglobin 91.2 L ABG O2 Sat (Calculated) 17.5 ABG O2 Saturation 95.6 ABG Carboxyhemoglobin 4.50 H ABG Methemoglobin 0.1 Oscar Test YES A-a O2 Difference 53.0 Total Hemoglobin 13.6 Lactate 1.80 Liter Flow 2.0 Blood Gas Modality CANNULA FiO2 % 28.0 Sodium 131 L Potassium 4.3 Chloride 92 L Carbon Dioxide 25 Anion Gap 14 BUN 17 Creatinine 1.4 H Estimated GFR/1.73 m2 37 BUN/Creatinine Ratio 12 Glucose 110 H Calculated Osmolality 265 Calcium 9.0 Magnesium 1.8 Total Bilirubin 0.20 AST 18 ALT 12 Alkaline Phosphatase 122 H Ammonia Troponin T High Sens [id number] Pept Total Protein 7.7 Albumin 4.1 Globulin 4.0 Albumin/Globulin Ratio 1.0 Plasma Lactate Urine Source Urine Color Urine Turbidity Urine pH Ur Specific [place] Urine Protein Ur Glucose (Stick) Ur Ketones (Stick) Urine Blood Urine Nitrite Urine Bilirubin Urobilinogen Dipstick Urine Leukocytes Urine WBC (Auto) Urine RBC (Auto) U Epithel Cells (Auto) Urine Bacteria (Auto) Salicylates < 3.00 L Urine Opiates Screen Ur Oxycodone Screen Urine Methadone Screen U Propoxyphene Qual Acetaminophen 38.0 H Ur Barbituates Screen Ur Tricyclics Screen Ur Phencyclidine Scrn Ur Amphetamines Screen U Methamphetamines Scrn U Benzodiazepines Scrn Urine Cocaine Screen U Cannabinoids Screen Plasma/Serum Ethyl Alc Acetone Level NEGATIVE Influenza A (Rapid) Influenza B (Rapid) 03/07/19 03/07/19 03/07/19 13:10 13:10 13:10 WBC 10.27 RBC 4.28 Hgb 12.7 Hct 38.0 MCV 88.8 MCH 29.7 MCHC 33.4 RDW Std Deviation 12.4 Plt Count 323 MPV 10.0 Immature Gran % (Auto) 0.4 Neut % (Auto) 67.3 Lymph % (Auto) 20.0 L [place] % (Auto) 9.1 Eos % (Auto) 2.8 Baso % (Auto) 0.4 Immature Gran # (Auto) 0.04 Neut # (Auto) 6.92 H Lymph # (Auto) 2.05 [place] # (Auto) 0.93 H Eos # (Auto) 0.29 Baso # (Auto) 0.04 Specimen Type Sample Site pH pCO2 pO2 HCO3 Base Excess Oxyhemoglobin ABG O2 Sat (Calculated) ABG O2 Saturation ABG Carboxyhemoglobin ABG Methemoglobin Oscar Test A-a O2 Difference Total Hemoglobin Lactate Liter Flow Blood Gas Modality FiO2 % Sodium Potassium Chloride Carbon Dioxide Anion Gap BUN Creatinine Estimated GFR/1.73 m2 BUN/Creatinine Ratio Glucose Calculated Osmolality Calcium Magnesium Total Bilirubin AST ALT Alkaline Phosphatase Ammonia 17 Troponin T High Sens [id number]-Qgipntudwus Pept Total Protein Albumin Globulin Albumin/Globulin Ratio Plasma Lactate 2.3 H Urine Source Urine Color Urine Turbidity Urine pH Ur Specific [place] Urine Protein Ur Glucose (Stick) Ur Ketones (Stick) Urine Blood Urine Nitrite Urine Bilirubin Urobilinogen Dipstick Urine Leukocytes Urine WBC (Auto) Urine RBC (Auto) U Epithel Cells (Auto) Urine Bacteria (Auto) Salicylates Urine Opiates Screen Ur Oxycodone Screen Urine Methadone Screen U Propoxyphene Qual Acetaminophen Ur Barbituates Screen Ur Tricyclics Screen Ur Phencyclidine Scrn Ur Amphetamines Screen U Methamphetamines Scrn U Benzodiazepines Scrn Urine Cocaine Screen U Cannabinoids Screen Plasma/Serum Ethyl Alc Acetone Level Influenza A (Rapid) Influenza B (Rapid) 03/07/19 03/07/19 03/07/19 13:10 13:10 13:10 WBC RBC Hgb Hct MCV MCH MCHC RDW Std Deviation Plt Count MPV Immature Gran % (Auto) Neut % (Auto) Lymph % (Auto) [place] % (Auto) Eos % (Auto) Baso % (Auto) Immature Gran # (Auto) Neut # (Auto) Lymph # (Auto) [place] # (Auto) Eos # (Auto) Baso # (Auto) Specimen Type Sample Site pH pCO2 pO2 HCO3 Base Excess Oxyhemoglobin ABG O2 Sat (Calculated) ABG O2 Saturation ABG Carboxyhemoglobin ABG Methemoglobin Oscar Test A-a O2 Difference Total Hemoglobin Lactate Liter Flow Blood Gas Modality FiO2 % Sodium Potassium Chloride Carbon Dioxide Anion Gap BUN Creatinine Estimated GFR/1.73 m2 BUN/Creatinine Ratio Glucose Calculated Osmolality Calcium Magnesium Total Bilirubin AST ALT Alkaline Phosphatase Ammonia Troponin T High Sens 16 [id number]-Bxccmcddcsu Pept 192 Total Protein Albumin Globulin Albumin/Globulin Ratio Plasma Lactate Urine Source Urine Color Urine Turbidity Urine pH Ur Specific [place] Urine Protein Ur Glucose (Stick) Ur Ketones (Stick) Urine Blood Urine Nitrite Urine Bilirubin Urobilinogen Dipstick Urine Leukocytes Urine WBC (Auto) Urine RBC (Auto) U Epithel Cells (Auto) Urine Bacteria (Auto) Salicylates Urine Opiates Screen Ur Oxycodone Screen Urine Methadone Screen U Propoxyphene Qual Acetaminophen Ur Barbituates Screen Ur Tricyclics Screen Ur Phencyclidine Scrn Ur Amphetamines Screen U Methamphetamines Scrn U Benzodiazepines Scrn Urine Cocaine Screen U Cannabinoids Screen Plasma/Serum Ethyl Alc Acetone Level Influenza A (Rapid) Influenza B (Rapid) 03/07/19 03/07/19 03/07/19 13:15 14:15 14:15 WBC RBC Hgb Hct MCV MCH MCHC RDW Std Deviation Plt Count MPV Immature Gran % (Auto) Neut % (Auto) Lymph % (Auto) [place] % (Auto) Eos % (Auto) Baso % (Auto) Immature Gran # (Auto) Neut # (Auto) Lymph # (Auto) [place] # (Auto) Eos # (Auto) Baso # (Auto) Specimen Type Sample Site pH pCO2 pO2 HCO3 Base Excess Oxyhemoglobin ABG O2 Sat (Calculated) ABG O2 Saturation ABG Carboxyhemoglobin ABG Methemoglobin Oscar Test A-a O2 Difference Total Hemoglobin Lactate Liter Flow Blood Gas Modality FiO2 % Sodium Potassium Chloride Carbon Dioxide Anion Gap BUN Creatinine Estimated GFR/1.73 m2 BUN/Creatinine Ratio Glucose Calculated Osmolality Calcium Magnesium Total Bilirubin AST ALT Alkaline Phosphatase Ammonia Troponin T High Sens [id number]-O-Xhugtnzuedo Pept Total Protein Albumin Globulin Albumin/Globulin Ratio Plasma Lactate Urine Source CLEAN CATCH Urine Color YELLOW Urine Turbidity CLEAR Urine pH 6.0 Ur Specific [place] 1.025 Urine Protein TRACE A Ur Glucose (Stick) NEGATIVE Ur Ketones (Stick) NEGATIVE Urine Blood NEGATIVE Urine Nitrite NEGATIVE Urine Bilirubin NEGATIVE Urobilinogen Dipstick 2 A Urine Leukocytes LARGE A Urine WBC (Auto) 20-40 A Urine RBC (Auto) <10 U Epithel Cells (Auto) <10 Urine Bacteria (Auto) NEGATIVE Salicylates Urine Opiates Screen PRESUMPTIVE POSITIVE A Ur Oxycodone Screen PRESUMPTIVE POSITIVE A Urine Methadone Screen NONE DETECTED U Propoxyphene Qual NONE DETECTED Acetaminophen Ur Barbituates Screen NONE DETECTED Ur Tricyclics Screen PRESUMPTIVE POSITIVE A Ur Phencyclidine Scrn NONE DETECTED Ur Amphetamines Screen NONE DETECTED U Methamphetamines Scrn NONE DETECTED U Benzodiazepines Scrn NONE DETECTED Urine Cocaine Screen NONE DETECTED U Cannabinoids Screen NONE DETECTED Plasma/Serum Ethyl Alc Acetone Level Influenza A (Rapid) NEGATIVE Influenza B (Rapid) NEGATIVE Orders Category Date Time Status Admit - [facility] Routine AdmDCTranf 03/07/19 14:51 Active Activity - Up with Assistance ORDERED Care 03/07/19 14:51 Active Cardiac Monitoring DIRECTED Care 03/07/19 12:36 Active DVT/PE Risk Assess/Protocol [QM] ORDERED Care 03/07/19 14:51 Active Lieberman Cath Insertion ORDERED Care 03/07/19 12:35 Active Intake and Output-Strict ORDERED Care 03/07/19 14:51 Active Saline Loc NOW Care 03/07/19 12:36 Active Vital Signs Order Q 8-HR ASSESS Care 03/07/19 14:51 Active Z-Document. for Tele Applied ORDERED Care 03/07/19 14:52 Active Regular Diet Diet 03/07/19 14:51 Active CHEST-PORTABLE [RAD] Stat Exams 03/07/19 12:37 Completed ABG [RESP] Routine Lab 03/07/19 12:55 Completed ACETAMINOPHEN [TDM] Stat Lab 03/07/19 13:10 Completed ACETONE SERUM [CHEM] Stat Lab 03/07/19 13:10 Completed ALCOHOL BLOOD Stat Lab 03/07/19 13:10 Completed AMMONIA [CHEM] Stat Lab 03/07/19 13:10 Completed CBC WITH ELECTRONIC DIFF [HEME] Stat Lab 03/07/19 13:10 Completed CBC WITH NO DIFF [HEME] Routine Lab 03/08/19 06:00 Ordered COMPREHENSIVE METABOLIC PANEL [CHEM] Routine Lab 03/08/19 06:00 Uncollected COMPREHENSIVE METABOLIC PANEL [CHEM] Stat Lab 03/07/19 13:[address] Stat Lab 03/07/19 13:15 Completed LACTATE, PLASMA [CHEM] Stat Lab 03/07/19 13:10 Completed MAGNESIUM [CHEM] Routine Lab 03/08/19 06:00 Uncollected MAGNESIUM [CHEM] Stat Lab 03/07/19 13:10 Completed PRO B-NATRIURETIC PEPTIDE Stat Lab 03/07/19 13:10 Completed SALICYLATES [TDM] Stat Lab 03/07/19 13:10 Completed TROPONIN T HIGH SENSITIVITY Stat Lab 03/07/19 13:10 Completed TSH Routine Lab 03/08/19 06:00 Uncollected URINALYSIS W/POSS RFLX CULT [URINALYSIS] Stat Lab 03/07/19 14:15 Completed URINE CULTURE [RM] Routine Lab 03/07/19 14:43 Ordered URINE DRUG SCREEN PL Stat Lab 03/07/19 14:15 Completed 0.9% Sodium Chloride Inj [Ns] 500 ml Med 03/07/19 12:38 Discontinued IV 999 mls/hr Acetaminophen [Tylenol] Med 03/07/19 14:52 Active 650 mg PO Q6H PRN PRN Ondansetron [Zofran] Med 03/07/19 14:52 Active 4 mg IV Q4-6H PRN PRN Telemetry [OM.EQ] Routine Oth 03/07/19 14:51 Active EKG [EKG] Stat Ther 03/07/19 12:36 Ordered Transfer/Admit Order [TRANSFER] Routine Transfer 03/07/19 14:54 Ordered Result Diagrams: 03/07/19 13:10 03/07/19 13:10 - REASSESSMENT Reassessment #1 Time Reassessed: 13:56 Status: unchanged (dr at bedside) - EKG 1 Time of EKG reading by physician:: 11:53 EKG Read and Signed by:: Prashanth Arce EKG Interpretation (*Must complete 3 of following elements*): Abnormal Rate: 90 Rhythm: nsr [place]: normal QRS: other (low volatge qrs) [place] Interval: normal ST Wave: normal Comments: possible inferior infarct, age undetermined - XRAY 1 XRAY: Bilateral XRAY Study: Chest Impression: See EMR Report (EXAM: CHEST-PORTABLE - 03/07/2019 HISTORY: OVERDOSE TECHNIQUE: Portable chest COMPARISON: 12/30/2018 chest two views FINDINGS: Heart size is normal. Inspiration is mildly shallow. There is subseg mental atelectasis at the left base. The remainder of the lungs appear clear. There is no pleural effusion or pneumothorax identified. IMPRESSION: Mildly shallow inspiration, with subsegmental atelectasis at left base. No discrete pneumonia. Electronically signed by Alex Rogers 03/07/2019 1:37 PM 03/07/19 [id number] Interpreting Physician: Alex Rogers MD Dictated Date/Time: 03/07/19 1336 cc: Prashanth Arce MD; None,PCP) - CONSULTS/PCP/HOSPITALIST Notification #1 *Consult/PCP/Hospitalist*: DR SAUNDERS Consult Disposition: Admit Departure - Departure Date of Disposition Decision: 03/07/19 Time of Disposition Decision: 15:22 DIAGNOSIS: Suicidal ideations Overdose Qualifiers: Encounter type: initial encounter Injury intent: intentional self-harm Qualified Code(s): T50.902A - Poisoning by unspecified drugs, medicaments and biological substances, intentional self-harm, initial encounter Altered mental status Qualifiers: Altered mental status type: unspecified Qualified Code(s): R41.82 - Altered men rafal status, unspecified Nicotine dependence, unspecified, uncomplicated Qualifiers: Nicotine product type: unspecified Qualified Code(s): F17.200 - Nicotine dependence, unspecified, uncomplicated Disposition: ADMITTED INPATIENT 09 Certified Medical Emergency: Emergent Condition: Stable Referrals and Follow-Ups: None,PCP [Primary Care Provider] - - Critical Care Note This patient required my direct & personal management of CC.: No Attestation - Physician/ ROMARIO Attestation Patient care was provided by Advanced Practice Provider:: No The physician spent face to face time with patient:: Yes Advanced Practice Provider documentation review:: Supervising physician onsite and consulted in the evaluation and care of this patient. The physician did have a face to face encounter with the patient. This chart was documented by the indicated scribe, (Nati Phan Scribe) and accurately reflects the services I performed and decisions made by me, Prashanth Arce MD, as attested by the provider's signature.
--- NOTE | 2019-03-07 17:40 | EKG Report ---
Test Performed on : 03/07/2019 11:53:30 AM Test Reason : OVERDOSE NARCOTICS Blood Pressure : / mmHG Vent. Rate : 090 BPM Atrial Rate : 090 BPM P-R Int : 152 ms QRS Dur : 064 ms QT Int : 366 ms P-R-T Axes : 050 011 046 degrees QTc Int : 447 ms Normal sinus rhythm. Low voltage QRS Possible Inferior infarct , age undetermined Abnormal ECG When compared with ECG of 30-DEC-2018 08:47, (Unconfirmed) Borderline criteria for Inferior infarct are now present Unconfirmed Result
--- NOTE | 2019-03-08 03:58 | HISTORY AND PHYSICAL ---
CHIEF COMPLAINT: Overdose. HISTORY OF PRESENT ILLNESS: The patient is an elderly female who presented to the emergency department after taking an intentional overdose. She apparently has a morphine pain pump and at some point took 6 to 8 oxycodone on top of this. In the ER, she was slow to answer. Does appear as though this may have been done intentionally to harm herself. ALLERGIES: Amoxil causing diarrhea. MEDICATIONS: I do not have an accurate medication list. It does appear that she has been on Requip, Pravachol, Colace, Symbicort, Prevacid, Percocet, and a morphine pain pump. PAST MEDICAL HISTORY: Significant for known coronary artery disease, congestive heart failure, hypertension, hyperlipidemia, COPD, reflux, chronic back pain with a pain pump, depression, previous history of suicide attempt, history of skin cancer. SURGICAL HISTORY: She has had an appendectomy, CABG in the past, cholecystectomy, hysterectomy, indwelling pain pump due to chronic back pain. FAMILY HISTORY: Noncontributory. REVIEW OF SYSTEMS: Effectively unobtainable from the patient as she is very slow to respond. She is confused. She does appear to be having suicidal thoughts. She denies any GI or issues. SOCIAL HISTORY: Patient smokes less than a pack a day. Denies alcohol or other illicit substance use. PHYSICAL EXAMINATION: VITAL SIGNS: Reviewed. Temperature 98.6 degrees, pulse 99, respiratory rate 18, BP 155/72. GENERAL: Patient is awake, alert, currently in no respiratory distress. HEENT: Normocephalic. NECK: Supple. CARDIOVASCULAR: Regular rate. CHEST: Clear. ABDOMEN: Soft. EXTREMITIES: She is noted to move all extremities. NEUROLOGIC: Unable to assess due to her confusion, but she has no grossly focal deficits. ASSESSMENT: 1. Drug overdose, appears to have been intentional. 2. Elevated carboxyhemoglobin. 3. Chronic pain with a pain pump. 4. History of depression. 5. Known coronary artery disease. 6. Hypertension. 7. Chronic obstructive pulmonary disease. PLAN: We are going to admit patient to the hospital, place her on a nicotine patch, keep her under observation. We will allow whatever she took to wear off. Treat her symptomatically as needed. [facility] after she is more awake and alert. We will follow for further withdrawal. cc: Christopher Varela MD
[2019-03-08 05:47] LABS: HEMOGLOBIN 12.1 g/dL (12.0-16.0); MCH 29.7 PG (27-31); MCHC 32.7 g/dL (33-37); MCV 90.7 FL (81-99); MPV 9.6 FL (7.4-10.4); RBC 4.08 XMIL (4.2-5.4); RDW 12.4 % (11.5-14.5); WBC 10.37 X1000 (4.8-10.8)
[2019-03-08 06:15] LABS: ALB/GLOB RATIO 1.1; ALBUMIN 3.6 g/dL (3.5-5.0); CREATININE 1.4 mg/dL (0.5-0.9); MAGNESIUM 1.7 mg/dL (1.5-2.7); TOTAL BILIRUBIN 0.33 mg/dL (0.20-1.00); TOTAL PROTEIN 6.9 g/dL (6.3-8.3)
[2019-03-08] MEDS ORDERED: NS 1,000 ML IV SCH (09:45)
[2019-03-08] MEDS: DUONEB (A & A) INH SCH ×3 (10:20→23:50)
[2019-03-08] MEDS ORDERED: ATIVAN PO PRN (10:47)
[2019-03-08] MEDS: PERSANTINE PO SCH ×3 (13:03→23:05)
--- NOTE | 2019-03-08 14:28 | PROGRESS NOTE ---
DATE: 03/08/2019 INTERVAL HISTORY: Ms. Jaramillo was admitted for suicide attempt where she took many tablets of her oxycodone. Overnight, she did not have any acute events. SUBJECTIVE: Ms. Jaramillo appears anxious. Initially, she refused to engage in encounter as there was a sitter at the bedside. I requested a sitter to wait outside and she provided me meaningful clinical information. Ms. Jaramillo states that she intentionally overtook many tablets of oxycodone because she was frustrated and she states to me that she did not care about anything anymore. She is still feeling the same and has ideas of hurting herself, though when I ask her how she would do that she told me she did not know. She denies any chest pain, shortness of breath, nausea, vomiting, or abdominal pain. She ate her breakfast in the morning time. VITALS: Temperature of 98.3 degrees, pulse 94, respiratory 22, blood pressure 150/70, saturating 99% 2 L nasal cannula. PHYSICAL EXAMINATION: Not in acute distress. Oral cavity is moist. Air entry bilaterally equal. No wheeze or crackles.Cardiovascular: S1, S2 normal. No murmur or gallop. Abdomen: Soft, nontender. She has a right lower quadrant morphine pump. She does not have any lower extremity edema. She is alert, oriented x3. Psychiatric Evaluation: Her speech is normal. She appears fidgety, anxious, and has frequent restless movements of upper and lower extremity. She has suicidal ideation, though she did not have any means. She does not have any homicidal ideation. Her thought content is normal. Thought process is normal. She does not have any delusion, hallucination. She thanked me at the end of encounter. LABS: Suggestive of WBC 10.37, hemoglobin 12.1, platelet 284,000. Basic metabolic panel suggestive of sodium of 128, chloride of 91, BUN of 18, creatinine of 1.4, suggestive of likely chronic kidney disease stage 3. ASSESSMENT AND PLAN: 1. Intentional overdose with 5 to 6 tablets of oxycodone on top of her continuous morphine infusion through right lower quadrant abdominal morphine pump. Her mental status has improved as compared to what was documented on previous notes and she is alert and oriented x3. Her EKG did not have any abnormalities. I will continue to monitor her inside the hospital. I will keep her on 1:1 suicide precautions. I will request [facility] consultation. She was counseled about seeking help whenever she has suicidal or homicidal thoughts. 2. History of anxiety, depression and previous suicide attempts. She states that she was previously taking Ativan. Her current medication reconciliation has not been completed. Based on previous discharge summary, she was taking olanzapine, which I will resume. She was also taking ropinirole for restless legs, which I will resume. I will keep her on lorazepam as needed for anxiety. 3. Hyponatremia, hypochloremia. I will give her intravenous fluid resuscitation for 1 L. Follow up Sodium levels. If needed I work it up further. It appears her low sodium has been pretty much chronic. 5. Others: Ms. Jaramillo does have documented history of coronary artery disease, congestive heart failure, hypertension, hyperlipidemia, COPD with active tobacco abuse, chronic back pain on morphine pump, and previous history of suicide attempts. I will keep her on inhaled bronchodilators, Symbicort, fluticasone nasal spray. She was listed to be taking dipyridamole, which I will resume. Plan of care discussed with the patient. Her questions have been satisfactorily answered. 4. Disposition: Patient is medically stable and could be discharged to a psychiatric facility. [facility] consultation has been requested. I am awaiting their recommendations. Meanwhile, I will keep the patient on suicide precautions. cc: Miguel Aly MD ADDENDUM: I was informed by the nurse that [facility] would consider taking the patient if her Sodium is >130 mEq. They also requested to get CT scan of head done. I will follow up Sodium levels now and if necessary tomorrow AM and I will also get CT scan of head. On presentation, she was found to be confused, however, she is alert and oriented now. I will also await medication reconciliation. DORIE
[2019-03-08] MEDS: SYMBICORT 160/4.5 MICROGM INHALER INH SCH (16:21)
--- NOTE | 2019-03-08 17:21 | Diag Imaging Result Doc PS360 ---
CT HEAD W/O CONTRAST - 03/08/2019 INDICATION: encephalopathy COMPARISON: 12/30/2018 FINDINGS: There is stable mild cerebral atrophy. Stable mild cerebral white matter chronic microvascular ischemia. No intracranial mass or hemorrhage. The skull is intact. The sinuses are clear. IMPRESSION: No acute disease or change from prior. This exam was performed using automated exposure control, adjustment of mA or kV according to patient size, and/or use of iterative reconstruction technique Electronically signed by Chacorta Fu 03/08/2019 5:19 PM
[2019-03-08] MEDS ORDERED: ZYPREXA PO SCH (21:00)
[2019-03-08] MEDS ORDERED: REQUIP PO SCH (21:00)
[2019-03-09] MEDS: SYMBICORT 160/4.5 MICROGM INHALER INH SCH ×2 (00:18→11:11)
[2019-03-09] MEDS: DUONEB (A & A) INH SCH ×2 (04:41→11:15)
[2019-03-09 04:53] LABS: BASO# 0.04 X1000 (0.0-0.2); BASO% 0.6 % (0.0-0.8); EOS# 0.25 X1000 (0.0-0.7); EOS% 3.5 % (0.0-10.0); HEMATOCRIT 34.8 % (37.0-47.0); HEMOGLOBIN 11.5 g/dL (12.0-16.0); IMM GRAN# 0.02 X1000 (0.0-0.04); IMM GRAN% 0.3 % (0.0-0.5); LYMPH# 2.09 X1000 (1.2-3.4); MCH 29.6 PG (27-31); MCV 89.7 FL (81-99); MONO# 0.46 X1000 (0.11-0.59); MONO% 6.4 % (1.7-9.3); MPV 9.9 FL (7.4-10.4); NEUT# 4.34 X1000 (1.4-6.5); NEUT% 60.2 % (42.2-75.2); PLT 235 X1000 (130-400); RBC 3.88 XMIL (4.2-5.4); RDW 12.2 % (11.5-14.5)
[2019-03-09 05:17] LABS: CALCIUM 8.5 mg/dL (8.8-10.2); CREATININE 1.1 mg/dL (0.5-0.9); POTASSIUM 3.9 mmol/L (3.5-5.1); TOTAL BILIRUBIN 0.2 mg/dL (0.20-1.00); TOTAL PROTEIN 6.1 g/dL (6.3-8.3)
[2019-03-09] MEDS ORDERED: FLONASE NAS SCH (09:00)
[2019-03-09] MEDS: PERSANTINE PO SCH (09:47)
[2019-03-09 11:41] VITALS: BP 146/62
--- NOTE | 2019-03-09 13:39 | DISCHARGE SUMMARY ---
ADMISSION DATE: 03/07/2019 DISCHARGE DATE: 03/09/2019 HOSPITAL COURSE: This is a 78-year-old, elderly female who presented to the emergency room after taking an intentional overdose. Apparently has been on morphine pain pump and at some point, took 6 to 8 oxycodone on top of this. In the ER, she was slow to answer. It does appears as though she may have done this intentionally. It was the impression in the emergency room so admitted with overdose, elevated carboxyhemoglobin, chronic pain on a pain pump, history of depression, history of known coronary artery disease and peripheral vascular disease, history of hypertension, and chronic obstructive pulmonary disease. The patient had a CT of the head done without contrast. No acute disease or change from prior CT scan. The patient woke up, was eating well, and intentional overdose of 5-6 tablets of oxycodone on top of her continuous morphine infusion through right lower quadrant abdominal morphine pump. Her mental status is improved. Her EKG did not have any new changes or abnormalities to suggest acute ischemia. Hemodynamically stable. Anxiety, depression, and previous suicide attempts. [facility] has accepted her and I think she is stable, ready to go. Hyponatremia, hypochloremia. I gave her some fluid. This is resolved. History of coronary artery disease and congestive heart failure, hypertension, hyperlipidemia, COPD, active tobacco use. I have counseled her on the importance of quitting smoking. She has chronic pain for which she has a morphine pump so we will plan on sending her to [facility] [place] for more aggressive treatment on her depression and suicide ideation. We will discharge her. She can have DuoNebs as needed, Symbicort 160/4.5 two puffs twice a day, Persantine 25 mg b.i.d., Flonase 1 puff to each nostril daily, Ativan 0.5 mg t.i.d. p.r.n., Zyprexa 2.5 mg at bedtime, and Requip 1 mg at bedtime. REVIEW OF LABS: Her most recent lab today, white count 7200, hematocrit is 34, platelet count 235,000. Chemistry: Sodium 133, potassium 3.9, chloride 99, BUN 15, creatinine 1.1. cc: Oscar Connor MD
== END 2019-03-09 15:04 | DRG 917 ==
LOC: P.ED 11:36 → SUATTDRO 18:08 → 1N 18:08
PROVIDERS: ATTEND Emergency Medicine